=== PATIENT | female | born 1990 | race Two or more races ===

== ENCOUNTER 2022-11-21 13:01 | Outpatient (CLI) | payer OTHER | END 2022-11-21 13:02 | disposition home or self-care (01) | LOC: EDBD 13:01 → LAB 13:01 | PROVIDERS: ATTEND Student in an Organized Health Care Education/Training Program | DX: Z34.02 Encounter for supervision of normal first pregnancy, second trimester (principal) ==

== ENCOUNTER 2022-12-23 10:57 | Outpatient (CLI) | payer OTHER | END 2022-12-23 12:45 | disposition home or self-care (01) | LOC: PRENATAL 10:57 | PROVIDERS: ATTEND Obstetrics & Gynecology Maternal & Fetal Medicine | DX: O35.3XX0 Maternal care for (suspected) damage to fetus from viral disease in mother, not applicable or unspecified (principal); O34.10 Maternal care for benign tumor of corpus uteri, unspecified trimester ==

== ENCOUNTER 2023-03-10 14:01 | Outpatient (CLI) | payer OTHER | END 2023-03-10 15:21 | disposition home or self-care (01) | LOC: PRENATAL 14:01 | PROVIDERS: ATTEND Obstetrics & Gynecology Maternal & Fetal Medicine | DX: O26.849 Uterine size-date discrepancy, unspecified trimester (principal); O36.8199 Decreased fetal movements, unspecified trimester, other fetus; O34.10 Maternal care for benign tumor of corpus uteri, unspecified trimester; Z3A.32 32 weeks gestation of pregnancy ==

== ENCOUNTER 2023-04-07 09:02 | Outpatient (CLI) | payer OTHER | END 2023-04-07 10:02 | disposition home or self-care (01) | LOC: PRENATAL 09:02 | PROVIDERS: ATTEND Obstetrics & Gynecology Maternal & Fetal Medicine | DX: O26.849 Uterine size-date discrepancy, unspecified trimester (principal); O36.8199 Decreased fetal movements, unspecified trimester, other fetus; O28.3 Abnormal ultrasonic finding on antenatal screening of mother; Z3A.36 36 weeks gestation of pregnancy ==

== ENCOUNTER 2023-04-20 07:22 | Inpatient (IN) | payer OTHER ==
[~2023-04-20] VITALS: Ht 177.8 cm; Wt 105.2 kg
[2023-04-20] MEDS ORDERED: PRENATAL TABLE1 EAC1 (09:29)
[2023-04-22] MEDS ORDERED: NAPR500T14 PO (13:01)
== END 2023-04-22 13:37 | disposition home or self-care (01) | DRG 768 ==
LOC: LDR 07:22 → OB/GYN 16:25
PROVIDERS: ADMIT Student in an Organized Health Care Education/Training Program; ATTEND Student in an Organized Health Care Education/Training Program
PROC: 10E0XZZ Delivery of Products of Conception, External Approach (ICD-10-PCS; principal; 2023-04-20)
PROC: 0DQR0ZZ Repair Anal Sphincter, Open Approach (ICD-10-PCS; 2023-04-20)
PROC: 4A1HXCZ Monitoring of Products of Conception, Cardiac Rate, External Approach (ICD-10-PCS; 2023-04-20)
DX: O70.21 Third degree perineal laceration during delivery, IIIa (principal); Z37.0 Single live birth; Z3A.38 38 weeks gestation of pregnancy; Z20.822 Contact with and (suspected) exposure to COVID-19

== ENCOUNTER 2023-12-26 16:06 | Emergency (ER) | payer OTHER ==
[~2023-12-26] VITALS: Ht 177.8 cm; Wt 104.3 kg
[~2023-12-26 16:06] MED LIST: NAPR500T14 PO; PRENATAL TABLE1 EAC1
[2023-12-26] MEDS ORDERED: PRENATAL + DHA1 EAC1 PO (16:32)
[2023-12-26] MEDS ORDERED: 0.9 % SODIUM CHLORIDE 1,000 ML IV STA (16:41)
[2023-12-26 17:13] LABS: HEMATOCRIT 37.2 % (36.0-45.00); HEMOGLOBIN 12.6 g/dL (12.0-15.00); MEAN CELL VOLUME 90.7 fL (80.00-100.00); MEAN CORPUSCULAR HEMOGLOBIN 30.7 pg (27.00-32.0); MEAN CORPUSCULAR HGB CONC 33.9 g/dl (32.0-36.0); PLATELET COUNT 212 K/uL (150-450); RED CELL DISTRIBUTION WIDTH 15.7 % (11.5-14.5)
[2023-12-26 17:27] LABS: CALCIUM 9.2 mg/dL (8.5-10.1); CREATININE SERUM 0.61 mg/dL (0.55-1.02); GFR 113.66; POTASSIUM 3.56 mEq/L (3.5-5.1)
[2023-12-26 17:46] LABS: URINE APPEARANCE Clear; URINE BILIRRUBIN Negative (NEGATIVE); URINE BLOOD Negative; URINE COLOR Yellow; URINE GLUCOSE Negative (NEGATIVE); URINE LEUKOCYTE Trace; URINE NITRATE Negative; URINE PROTEIN Negative (NEGATIVE)
[2023-12-26 17:50] LABS: URINE BACTERIA 696.6 uL (0.0-1933); URINE EPITHELIAL CELLS 26.2 uL (0.0-38.8); URINE RBC 3.5 uL (0.0-20.8); URINE WBC 26.4 uL (0.0-23.2)
== END 2023-12-26 21:29 | disposition home or self-care (01) ==
LOC: ER 16:06
PROVIDERS: Emergency Medicine
DX: O26.892 Other specified pregnancy related conditions, second trimester (principal); Z3A.21 21 weeks gestation of pregnancy; R10.9 Unspecified abdominal pain; Z88.0 Allergy status to penicillin; Z88.2 Allergy status to sulfonamides; K76.89 Other specified diseases of liver
CPT/HCPCS: 36415; 76700; 76805; 76819; 96365; 96366; 99284; J7030

== ENCOUNTER → 2024-01-12 08:07 | Outpatient (CLI) | payer OTHER ==
[~2024-01-12 08:07] MED LIST changes: +PRENATAL + DHA1 EAC1 PO
== END | disposition home or self-care (01) ==
LOC: PRENATAL 08:07
PROVIDERS: ATTEND Obstetrics & Gynecology Maternal & Fetal Medicine
DX: O35.9XX0 Maternal care for (suspected) fetal abnormality and damage, unspecified, not applicable or unspecified (principal); O35.3XX0 Maternal care for (suspected) damage to fetus from viral disease in mother, not applicable or unspecified; O34.10 Maternal care for benign tumor of corpus uteri, unspecified trimester; Z3A.23 23 weeks gestation of pregnancy

== ENCOUNTER → 2024-02-12 14:46 | Outpatient (CLI) | payer OTHER | END | disposition home or self-care (01) | LOC: PRENATAL 14:46 | PROVIDERS: ATTEND Obstetrics & Gynecology Maternal & Fetal Medicine | DX: O26.849 Uterine size-date discrepancy, unspecified trimester (principal); O34.10 Maternal care for benign tumor of corpus uteri, unspecified trimester; Z3A.28 28 weeks gestation of pregnancy ==

== ENCOUNTER 2024-09-05 05:40 | Day surgery (SDC) | payer OTHER ==
[~2024-09-05 05:40] MED LIST changes: +PRENATAL TABLE1 EAC1 PO; +VALTREX1000 MG PO
[2024-09-05] MEDS ORDERED: CLINDAMYCIN PHOSPHATE 150 MG/ML (900mg) IV SCH (06:00)
[2024-09-05] MEDS ORDERED: KETOROLAC TROMETHAMINE 60 MG VIAL IM ONE (13:00)
[2024-09-05] MEDS ORDERED: MEPERIDINE HCL/PF 25 MG/ML VIAL IV PRN (13:00)
[2024-09-05] MEDS ORDERED: PROMETHAZINE HCL 50 MG/ML AMPUL IM ONE (13:00)
[2024-09-05] MEDS ORDERED: NAPR500T14 PO (13:05)
[2024-09-05] MEDS ORDERED: Tylenol #3 PO (13:05)
== END 2024-09-05 15:30 | disposition home or self-care (01) ==
LOC: CIR.AMB 05:40
PROVIDERS: ATTEND Obstetrics & Gynecology
DX: Z30.2 Encounter for sterilization (principal); Z88.0 Allergy status to penicillin